=== PATIENT | male | born 1960 | race Caucasian/White ===

== ENCOUNTER 2020-06-18 07:11 | Outpatient (CLI) | payer OTHER, SELFPAY ==
[2020-06-18 08:00] LABS: Cholesterol 231 mg/dL (0-200); HDL Direct 44 mg/dL; Triglycerides 161 mg/dL (<150)
[2020-06-18 08:11] LABS: LDL Cholesterol Direct 134 mg/dL
[2020-06-18 08:32] LABS: Prostate Specific Antigen 0.9 ng/mL (< OR = 4.0)
== END 2020-06-18 07:12 | disposition home or self-care (01) ==
LOC: ANHLAB 07:13
PROVIDERS: PCP Family Medicine; Visit Provider Family Medicine
DX: Z13.220 Encounter for screening for lipoid disorders (principal); Z12.5 Encounter for screening for malignant neoplasm of prostate
CPT/HCPCS: 36415; 80061; 84153; G0103

== ENCOUNTER 2020-09-02 02:02 | Outpatient (CLI) | payer OTHER, SELFPAY ==
[2020-09-02 20:00] LABS: SARS-CoV-2 RNA PCR Negative
== END 2020-09-02 02:03 | disposition home or self-care (01) ==
LOC: ANHCOVIDDT 02:02
PROVIDERS: PCP Family Medicine; Visit Provider Internal Medicine Gastroenterology
DX: Z01.818 Encounter for other preprocedural examination (principal); Z20.828 Contact with and (suspected) exposure to other viral communicable diseases
CPT/HCPCS: 87635; C9803; U0003

== ENCOUNTER 2020-09-05 02:06 | Day surgery (SDC) | payer OTHER, SELFPAY ==
[2020-09-05 06:49] VITALS: BP 146/100; PULSE 96; RESP 16; TEMP 36.6; O2SAT 99; BMI 32.7
[2020-09-05] MEDS: LACTATED RINGERS 1,000 ML 150 ML IV CONT (06:59)
--- NOTE | 2020-09-05 07:02 | WPDANESEPPF ---
Anes - Initial Pre Proc Eval Procedure: Operation Date: 09/05/20 08:00 Proposed Procedures p Screening Colonoscopy - Irvin Quevedo MD Date/Time: 09/05/20 07:02 Surgeon: Irvin Quevedo MD Pre Op Diagnosis: Neoplasm Screening Patient Data Age: 60 Gender: M Height: 1.78 m Weight: 103.5 kg Last Vital Signs Temp 36.6 C 09/05/20 06:49 Pulse 96 09/05/20 06:49 Resp 16 09/05/20 06:49 BP 146/100 H 09/05/20 06:49 Pulse Ox 99 09/05/20 06:49 Allergies Allergy/AdvReac Type Severity Reaction Status Date / Time No Known Allergies Allergy Verified 09/05/20 06:46 Home Medications Medication Instructions Recorded Confirmed Type rosuvastatin 20 mg tablet 20 mg PO DAILY #30 tablet 06/21/20 09/05/20 Rx peg 3350-electrolytes 236 240 ml PO Q10M #4000 ml 07/12/20 Rx gram-22.74 gram-6.74 gram-5.86 gram solution Patient hx anesthesia problems: none Family hx anesthesia problems: none PMFSH Past Medical History Medical History (Updated 06/06/20 @ 17:32 by Jose Pena MD) Plantar fasciitis Screen for colon cancer Screening for prostate cancer Screening, lipid Well adult health check Family History Family History Other Hypertension Malignant neoplasm of prostate Social History Social History Smoking status: Never smoker Alcohol intake: current Drinks per week: 3 Substance use type: does not use Living arrangements: with friend(s) Spiritual care concerns: No Anes - Eval Final PreProcedure Day of Procedure 09/05/20 07:02 Patient weight: obese Heart: regular rate and rhythm Lungs: clear to auscultation and normal air movement Airway: Mallampati scale class II Neurological: alert and oriented Last oral intake: >/= 8 hours ASA classification: III Emergent: no Anesthetic plan: proceed Anesthesia type and monitoring: general GIVS Informed Consent: The patient's anesthetic plan and its attendant risks and benefits were discussed with the patient/family/POA. Questions were solicited and answers provided to the satisfaction of the patient/family/POA.
--- NOTE | 2020-09-05 07:56 | PM.HPGS ---
History of Present Illness History of Present Illness Consent: Risks, benefits, and alternatives have been discussed and questions answered. Patient agrees to proceed with procedure. Chief complaint: Neoplasm Screening Narrative: Ad Dumont is a 60 year old male here for first screening colonoscopy Review of Systems Constitutional: Constitutional: Denies headache(s) and Denies weakness Eyes: Eyes: Denies blurry vision ENT: Reports Normal hearing present, Denies headache(s) and Denies neck pain Cardiovascular: Cardiovascular: Denies chest pain and Denies dyspnea Respiratory: Respiratory: Denies dyspnea Gastrointestinal: Gastrointestinal: Reports no additional gastrointestinal complaints Genitourinary: Genitourinary: Denies dysuria Musculoskeletal: Musculoskeletal: Denies neck pain Integumentary/Breasts: Skin/Breast: Denies dry skin Neurologic: Reports Normal hearing present, Denies headache(s) and Denies weakness Psychiatric: Psychiatric: Denies anxiety Endocrine: Endocrine: Denies change in body appearance Hematologic/Lymphatic: Hematologic/Lymphatic: Denies easy bleeding Allergic/Immunologic: Allergic/Immunologic: Denies urticaria [facility] Past Medical History Medical History (Updated 06/06/20 @ 17:32 by Jose Pena MD) Plantar fasciitis Screen for colon cancer Screening for prostate cancer Screening, lipid Well adult health check Family History Family History Other Hypertension Malignant neoplasm of prostate Social History Social History Smoking status: Never smoker Alcohol intake: current Drinks per week: 3 Substance use type: does not use Living arrangements: with friend(s) Spiritual care concerns: No Meds Home Medications and Allergies Home Medications Medication Instructions Recorded Confirmed Type rosuvastatin 20 mg tablet 20 mg PO DAILY #30 tablet 06/21/20 09/05/20 Rx peg 3350-electrolytes 236 240 ml PO Q10M #4000 ml 07/12/20 Rx gram-22.74 gram-6.74 gram-5.86 gram solution Allergies Allergy/AdvReac Type Severity Reaction Status Date / Time No Known Allergies Allergy Verified 09/05/20 06:46 Vital Signs Vital Signs - 24 hr 09/05/20 06:49 Temperature 98 F Pulse Rate 96 Respiratory Rate 16 Blood Pressure 146/100 H Pulse Oximetry 99 Exam Const: General: comfortable and no acute distress HENMT: General nose exam: Normal nares present Eyes: General: appearance normal, both eyes and all related structures Neck: Neck: no JVD Resp: Auscultation: clear to auscultation bilaterally Cardio: Rate: regular rate Rhythm: regular rhythm GI: Inspection: non-distended GI Palp: Yes Soft to palpation Skin: General skin exam: normal color Neuro: General: gait normal Speech: normal speech Extrem: General: normal to inspection Psych: Mental Status: mental status grossly normal Assessment and Plan Assessment and plan (1) Screen for colon cancer: Code(s): Z12.11 - Encounter for screening for malignant neoplasm of colon Status: Acute Assessment and Plan: will proceed with colonoscopy
[2020-09-05 08:19] VITALS: BP 133/91; PULSE 84; RESP 20; O2SAT 99
[2020-09-05 08:29] VITALS: BP 142/90; PULSE 79; RESP 18; O2SAT 99
[2020-09-05 08:39] VITALS: BP 154/97; PULSE 69; RESP 20; O2SAT 98
== END 2020-09-05 08:55 | disposition home or self-care (01) ==
PROVIDERS: PCP Family Medicine; Visit Provider Internal Medicine Gastroenterology
PROC: 0DJD8ZZ Inspection of Lower Intestinal Tract, Via Natural or Artificial Opening Endoscopic (ICD-10-PCS; CPT 45378; principal; 2020-09-05 08:00)
DX: Z12.11 Encounter for screening for malignant neoplasm of colon (principal); K57.30 Diverticulosis of large intestine without perforation or abscess without bleeding; K64.8 Other hemorrhoids; E66.9 Obesity, unspecified; Z68.32 Body mass index [BMI] 32.0-32.9, adult
CPT/HCPCS: 45378; 87635; C9803; J2704; J7120; U0003

== ENCOUNTER 2022-10-17 05:58 | Emergency (ER) | payer BC, SELFPAY ==
[2022-10-17] VITALS (7 sets, daily range): BP systolic 157–177; BP diastolic 92–98; PULSE 70–91; RESP 15–23; TEMP 35.5; O2SAT 95–97
--- NOTE | ~2022-10-17 | CT_ITS ---
EXAMINATION: CT abdomen pelvis wo con DATE: 10/17/2022 06:50 INDICATION: Right flank pain TECHNIQUE: Computed tomography (CT) of the abdomen and pelvis was performed without intravenous contr ast. Automated exposure control and iterative reconstruction technique were employed. The dose-length product was 1385.51 mGy-cm. COMPARISON: None FINDINGS: Mild dependent atelectasis in bilateral lower lobes. Heart size is normal. Mild scattered atheroscler otic coronary artery calcific location. No pericardial or pleural effusion. Small sliding-type hiatal hernia. Liver, gallbladder, spleen, pancreas, right kidney and bilateral adrenal glands are normal. 2 mm stone at the right ureterovesicular junction with mild right hydroureteronephrosis. No other maryuri dent urolithiasis. Partially decompressed bladder is otherwise unremarkable. There is moderate coloni c diverticulosis with a descending and sigmoid colon predominance. There is no adjacent inflammatory change to suggest diverticulitis. Small bowel and appendix are normal. Small fat-containing left ing uinal hernia. T10 hemangioma. Moderate thoracolumbar spondylosis with chronic appearing mild anterior wedging at a few lower thoracic vertebral bodies. IMPRESSION: 1. 2 mm stone at the right ureterovesicular junction with mild right hydroureteronephrosis. Reviewed, dictated and finalized at location A. 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 2 mm stone at the right ureterovesicular junction with mild right hydrourete ronephrosis.
--- NOTE | ~2022-10-17 | XR_ITS ---
EXAMINATION: XR abdomen/kub 1V DATE: 10/17/2022 06:42 INDICATION: Right flank pain TECHNIQUE: A supine view of the abdomen on 2 radiographs was obtained. COMPARISON: None. FINDINGS: Small amount of gas scattered throughout the bowels with no dilated bowel to suggest obstruction. No calcifications evident in the abdomen or pelvis to suggest urolithiasis. Lung bases are clear no pleu ral effusion. IMPRESSION: 1. Normal bowel gas pattern and no evident urolithiasis. 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
--- NOTE | 2022-10-17 06:17 | ED.GENADULT ---
HPI - General Adult General Chief complaint: Urogenital-Male <Susana Lunsford MD - Last Filed: 10/18/22 05:12> Stated complaint: flank pain <Susana Lunsford MD - Last Filed: 10/18/22 05:12> Time Seen by Provider: 10/17/22 06:07 <Susana Lunsford MD - Last Filed: 10/18/22 05:12> Source: patient and RN notes reviewed <Susana Lunsford MD - Last Filed: 10/18/22 05:12> Mode of arrival: ambulatory <Susana Lunsford MD - Last Filed: 10/18/22 05:12> Limitations: no limitations <Susana Lunsford MD - Last Filed: 10/18/22 05:12> History of Present Illness HPI narrative: This is a 62 year old male who presents for evaluation of right flank pain. He woke up with pain 2 hours ago, and he took advil 400 mg 10 prior to arrival. He started having nausea and vomiting on arrival to ER. He has pain to right flank that radiates to his right lower abdomen. His pain is worse in his right back. He also reports increased urinary urgency and hesitancy. He denies history of kidney stone. He rates his pain 9/10. <Susana Lunsford MD - Last Filed: 10/18/22 05:12> Related Data Allergies/adverse reactions: Allergies Allergy/AdvReac Type Severity Reaction Status Date / Time No Known Allergies Allergy Verified 10/17/22 06:15 <Susana Lunsford MD - Last Filed: 10/18/22 05:12> Review of Systems Constitutional: Constitutional: Denies weakness <Susana Lunsford MD - Last Filed: 10/18/22 05:12> Cardiovascular: Cardiovascular: Denies syncope, Denies rapid heart rate, Denies irregular heart rhythm, Denies leg edema and Denies dyspnea <Susana Lunsford MD - Last Filed: 10/18/22 05:12> Respiratory: Respiratory: Denies chest congestion, Denies hemoptysis, Denies excessive phlegm production and Denies dyspnea <Susana Lunsford MD - Last Filed: 10/18/22 05:12> Gastrointestinal: Gastrointestinal: Reports abdominal pain, Denies hematochezia, Denies diarrhea, Reports nausea and Reports vomiting <Susana Lunsford MD - Last Filed: 10/18/22 05:12> Genitourinary: Genitourinary: Denies hematuria, Denies dysuria, Denies penile discharge, Reports testicular pain and Reports urinary frequency <Susana Lunsford MD - Last Filed: 10/18/22 05:12> Musculoskeletal: Musculoskeletal: Denies joint swelling, Denies loss of height and Denies muscle weakness <Susana Lunsford MD - Last Filed: 10/18/22 05:12> Neurologic: Denies syncope, Denies focal weakness and Denies weakness <Susana Lunsford MD - Last Filed: 10/18/22 05:12> [facility] Past Medical History Medical History: Medical History Plantar fasciitis Screen for colon cancer Screening for prostate cancer Screening, lipid Well adult health check <Susana Lunsford MD - Last Filed: 10/18/22 05:12> Family History Family History: Family History Other Hypertension Malignant neoplasm of prostate <Susana Lunsford MD - Last Filed: 10/18/22 05:12> Social History Social History: Social History Smoking status: Never smoker Alcohol intake: current Drinks per week: 3 Substance use type: does not use Living arrangements: with friend(s) Spiritual care concerns: No <Susana Lunsford MD - Last Filed: 10/18/22 05:12> Exam Const: General: alert <Susana Lunsford MD - Last Filed: 10/18/22 05:12> Nutritional Appearance: obese <Susana Lunsford MD - Last Filed: 10/18/22 05:12> Orientation/consciousness: patient oriented x3 <Susana Lunsford MD - Last Filed: 10/18/22 05:12> Limitations: no limitations <Susana Lunsford MD - Last Filed: 10/18/22 05:12> Other: appears to be in pain. <Susana Lunsford MD - Last Filed: 10/18/22 05:12> HENMT: Head: normal to inspection <Susana Lunsford MD - Last Filed: 10/18/22 05:12> Eyes: EOM: EOMs intact bilaterally
[2022-10-17] MEDS: ONDANSETRON INJ 4 MG/2 ML VIAL IV PUSH (06:23)
[2022-10-17] MEDS: HYDROmorphone HCL INJ (*CRX) 1 MG/ML SYR IV PUSH (06:25)
[2022-10-17] MEDS: LACTATED RINGERS 1,000 ML 999 ML IV CONT (06:27)
[2022-10-17 06:38] LABS: Basophils Percent Auto 0.4 % (0.2-1.2); Eosinophils Absolute Auto 0.2 K/mm3 (0-0.3); Eosinophils Percent Auto 2.3 % (0-4.4); Hematocrit 44.4 % (42.0-52.0); Hemoglobin 14.8 g/dL (14.0-18.0); Immature Granulocyte Absolute 0.02 K/mm3 (0.00-0.031); Immature Granulocyte Percent A 0.2 % (0-0.5); Lymphocytes Absolute Auto 2.92 K/mm3 (0.9-3.2); Lymphocytes Percent Auto 32.5 % (18.3-44.2); Mean Corpuscular HGB Conc 33.3 g/dl (32-36); Mean Corpuscular Hemoglobin 32.2 pg (26-34); Mean Corpuscular Volume 96.7 fl (80-100); Mean Platelet Volume 9.6 fl (7.4-10.4); Monocytes Absolute Auto 1.1 K/mm3 (0.1-0.6); Monocytes Percent Auto 11.9 % (2.6-8.5); Neutrophils Absolute Auto 4.7 K/mm3 (1.3-6.7); Neutrophils Percent Auto 52.7 % (45.5-73.1); Platelet Count Result 307 k/mm3 (150-375); Red Blood Count 4.59 M/mm3 (4.6-6.20); Red Cell Distribution Width 11.9 % (11.5-14.5)
[2022-10-17 06:49] LABS: Alanine Aminotransferase 48 U/L (6-50); Albumin Level 4.2 g/dL (3.5-5.1); Alkaline Phosphatase 81 U/L (38-126); Anion Gap 9 mmol/L (8-16); Aspartate Amino Transferase 35 U/L (17-59); Bilirubin,Total 0.9 mg/dL (0.2-1.3); Blood Urea Nitrogen 22 mg/dL (9-20); Calcium 9.2 mg/dL (8.4-10.2); Carbon Dioxide 24 mmol/L (22-30); Chloride 106 mmol/L (98-107); Estimated CRCL calculation 73 ml/min; Estimated Glomerular Filt Rate > 60; Glucose 178 mg/dL (65-110); Potassium 4.1 mmol/L (3.4-5.0); Sodium 139 mmol/L (137-145)
--- NOTE | 2022-10-17 06:50 | PC.NURSE ---
Pt SpO2 sat dropped to 88% and is easily comes back into range of 94% after talking or stimuli. Pt denies hx of sleep apnea at this time. Dr. Lunsford made aware. No orders at this time. Pt resting comfortably in stretcher, speech clear. Pain 11/23. A&Ox4, resp even non-labored at this time.
--- NOTE | 2022-10-17 07:02 | PC.NURSE ---
Report given to TAMRA Trinidad.
[2022-10-17] MEDS: TAMSULOSIN HCL 0.4 MG CAPSULE PO (07:26)
[2022-10-17] MEDS: KETOROLAC 15 MG/ML VIAL (*BKC) IV PUSH (07:26)
--- NOTE | 2022-10-17 08:17 | PC.NURSE ---
reevaluated pt's pain. pt states his pain is a 10/10. EDP Bobo made aware.
--- NOTE | 2022-10-17 08:29 | PC.NURSE ---
4mg of morphine given IV per EDP Scanlon. TONY.
[2022-10-17 11:41] LABS: Amorphous Sediment Urine Few; Mucus Urine Moderate /lpf; RBC Urine 0-2 /hpf (0-2); Squamous Epithelial Cell Urine Rare /hpf (Few)
[2022-10-17 11:58] LABS: Appearance Urine Slightly Cloudy (Clear); Color Urine Yellow (Yellow); Specific Grav Ur > 1.030 (1.001-1.035)
[2022-10-17 11:59] LABS: Add Urine Microscopic? YES; Bilirubin Urine Negative (Negative); Blood Urine Negative (Negative); Glucose Urine UA 1+ mg/dL (Negative); Ketones Urine Negative (Negative); Leukocyte Esterase Ur Negative LEU/UL (Negative); Nitrate Urine Negative (Negative); Protein Urine 1+ mg/dL (Negative); Urobilinogen Urine 0.2 mg/dL (<2.0)
== END 2022-10-17 11:03 | disposition home or self-care (01) ==
PROVIDERS: Emergency Provider General Practice; PCP Family Medicine
DX: R20.1 Hypoesthesia of skin (principal)
CPT/HCPCS: 36415; 74018; 74176; 80053; 81001; 85025; 96361; 96374; 96375; 99284; A9270; J1170; J1885; J2270; J2405; J7120